=== PATIENT | male | born 1990 | race Caucasian/White ===

== ENCOUNTER 2018-12-08 22:16 | Emergency (ER) | payer MEDICAID ==
[~2018-12-08] VITALS: Ht 172.7 cm; Wt 72.6 kg
[2018-12-08 22:46] LABS: BASOPHILS % (AUTO) 1.8 % (0.0-2.0); EOSINOPHILS % (AUTO) 0.7 % (0.0-3.0); HEMATOCRIT 47.1 % (42.0-52.0); HEMOGLOBIN 16.3 G/DL (14.2-18.0); MEAN CORPUSCULAR VOLUME 88 FL (80-99); NEUTROPHILS % (AUTO) 74.6 % (45.0-75.0); PLATELET COUNT 298 K/UL (150-450); RED BLOOD COUNT 5.34 M/UL (4.70-6.10); RED CELL DISTRIBUTION WIDTH 10.8 % (11.6-14.8); WHITE BLOOD COUNT 9.2 K/UL (4.8-10.8)
[2018-12-08 23:05] LABS: ANION GAP 12 mmol/L (5-15); BLOOD UREA NITROGEN 19 mg/dL (7-18); CALCIUM 8.5 MG/DL (8.5-10.1); CARBON DIOXIDE 23 MMOL/L (21-32); CHLORIDE 109 MMOL/L (98-107); CREATININE 1.2 MG/DL (0.55-1.30); POTASSIUM 3.4 MMOL/L (3.5-5.1); SODIUM 144 MMOL/L (136-145)
[2018-12-08 23:09] LABS: ALANINE AMINOTRANSFERASE 47 U/L (12-78); ALBUMIN 3.4 G/DL (3.4-5.0); ALBUMIN/GLOBULIN RATIO 1.3 (1.0-2.7); ALKALINE PHOSPHATASE 88 U/L (46-116); ASPARTATE AMINO TRANSFERASE 32 U/L (15-37); BILIRUBIN,TOTAL 0.3 MG/DL (0.2-1.0)
--- NOTE | 2018-12-08 23:36 | NUR ---
ED Nurse Note: Patient brought in by ambulance, appears to have ETOH intoxication. Patient has sporadic emesis episodes. Will continue to monitor.
[2018-12-08 23:37] VITALS: BP 135/90
--- NOTE | 2018-12-09 00:06 | NUR ---
ED Nurse Note: Patient tolerated medication administration well. Patient unable to physically accomodate completion of CT. IV N/S fluid running, Will continue to monitor.
--- NOTE | 2018-12-09 00:25 | NUR ---
ED Nurse Note: Patient able to verbalize experience. He was informed of plan and is now attempting to go back to sleep. Will continue to monitor.
--- NOTE | 2018-12-09 01:25 | NUR ---
ED Nurse Note: PAtient is sleeping soundly, has no s/s of acute distress. Will continue to monitor.
--- NOTE | 2018-12-09 02:26 | NUR ---
ED Nurse Note: Patient still sleepings, even a symmetrical breathing, no s/s of acute distress. Will continue to monitor.
--- NOTE | 2018-12-09 02:27 | Emergency Room Report ---
History of Present Illness General Chief Complaint: Alcohol Intoxication Source: Patient, EMS Present Illness HPI 28-year-old male presents ED for evaluation. Brought in by EMS from Street. Found with alcohol bottles next to him. Bystanders called 911. Patient admitted to alcohol use to EMS. Patient not providing any additional history at this time. Denies chest pain or shortness of breath. Patient is vomiting. Denies abdominal pain. Denies drug use. No other aggravating relieving factors. Denies any other associated symptoms Allergies: Coded Allergies: UNABLE TO ASSESS (Unverified , 12/08/18) Patient History Past Medical History: none Past Surgical History: none Pertinent Family History: none Social History: Reports: alcohol use; Denies: smoking, drug use Immunizations: UTD Reviewed Nursing Documentation: PMH: Agreed; PSxH: Agreed Nursing Documentation-PMH Past Medical History Deferred: Pt Cognitively Impaired Past Medical History: Deferred Review of Systems All Other Systems: limited Physical Exam Vital Signs Date Time Temp Pulse Resp B/P (MAP) Pulse Ox O2 Delivery O2 Flow Rate FiO2 12/08/18 22:12 98.2 86 18 135/90 (105) 98 Room Air Sp02 EP Interpretation: reviewed, normal General Appearance: other - intoxicated Head: normocephalic Eyes: bilateral eye normal inspection, bilateral eye PERRL ENT: normal ENT inspection Neck: normal inspection Respiratory: normal inspection Cardiovascular #1: normal inspection Gastrointestinal: normal inspection Rectal: deferred Genitourinary: no CVA tenderness Musculoskeletal: normal inspection Neurologic: other - intoxicated Psychiatric: other - intoxicated Skin: no rash Lymphatic: normal inspection Medical Decision Making Diagnostic Impression: Primary Impression: Acute alcoholic intoxication Qualified Codes: F10.929 - Alcohol use, unspecified with intoxication, unspecified ER Course Hospital Course 28-year-old M presents to ED with altered mental status. +ETOH Differential diagnoses include: Psychosis, EtOH, drug abuse Clinical course patient placed on stretcher. On monitor tech. After initial history and physical ordered labs, IV fluids, pepcid, zofran Labs reviewed-electrolytes okay, no leukocytosis, hemoglobin/hematocrit stable, ETOH > 200 Patient given IV fluids. Given Pepcid and Zofran. Observed with stable vitals in ED. Patient awake alert oriented times 3 in the morning. discussed findings with patient. Will discharge to home Safe for discharge with close outpatient follow-up. Will provide referrals i. I feel this is a highly complex case requiring extensive working including EKG/Rhythm strip, Xray/CT/US, Blood/urine lab work, repeat exams while in ED, and administration of strong opiates/narcotics for pain control, admission to hospital or close patient follow up. Diagnosis -alcohol intoxication Stable and discharged to home. Followup with PMD. Return to ED if symptoms recur or worsen Labs Test 12/08/18 22:25 White Blood Count 9.2 K/UL (4.8-10.8) Red Blood Count 5.34 M/UL (4.70-6.10) Hemoglobin 16.3 G/DL (14.2-18.0) Hematocrit 47.1 % (42.0-52.0) Mean Corpuscular Volume 88 FL (80-99) Mean Corpuscular Hemoglobin 30.5 PG (27.0-31.0) Mean Corpuscular Hemoglobin Concent 34.6 G/DL (32.0-36.0) Red Cell Distribution Width 10.8 % (11.6-14.8) Platelet Count 298 K/UL (150-450) Mean Platelet Volume 6.8 FL (6.5-10.1) Neutrophils (%) (Auto) 74.6 % (45.0-75.0) Lymphocytes (%) (Auto) 13.0 % (20.0-45.0) Monocytes (%) (Auto) 10.0 % (1.0-10.0) Eosinophils (%) (Auto) 0.7 % (0.0-3.0) Basophils (%) (Auto) 1.8 % (0.0-2.0) Sodium Level 144 MMOL/L (136-145) Potassium Level 3.4 MMOL/L (3.5-5.1) Chloride Level 109 MMOL/L (98-107) Carbon Dioxide Level 23 MMOL/L (21-32) Anion Gap 12 mmol/L (5-15) Blood Urea Nitrogen 19 mg/dL (7-18) Creatinine 1.2 MG/DL (0.55-1.30) Estimat Glomerular Filtration Rate > 60 mL/min (>60) Glucose Level 108 MG/DL (74-106) Calcium Level 8.5 MG/DL (8.5-10.1) Total Bilirubin 0.3 MG/DL (0.2-1.0) Aspartate Amino Transf (AST/SGOT) 32 U/L (15-37) Alanine Aminotransferase (ALT/SGPT) 47 U/L (12-78) Alkaline Phosphatase 88 U/L (46-116) Total Protein 6.1 G/DL (6.4-8.2) Albumin 3.4 G/DL (3.4-5.0) Globulin 2.7 g/dL Albumin/Globulin Ratio 1.3 (1.0-2.7) Salicylates Level 0.3 ug/mL (2.8-20) Acetaminophen Level < 2 MCG/ML (10-30) Serum Alcohol 281 mg/dL Last Vital Signs Date Time Temp Pulse Resp B/P (MAP) Pulse Ox O2 Delivery O2 Flow Rate FiO2 12/08/18 23:37 98.2 86 18 135/90 98 Room Air Status: improved Disposition: HOME, SELF-CARE Condition: Stable Referrals: NOT CHOSEN IPA/,REFERRING (PCP) Kemar Rios MD Dec 09, 2018 02:27
--- NOTE | 2018-12-09 03:42 | NUR ---
ED Nurse Note: Patient sleeping soundly, will continue to monitor.
--- NOTE | 2018-12-09 05:12 | NUR ---
ED Nurse Note: Patient is awake, alert, able to ambulate. Patient reports no pain at this time. Patient request IV restart since EMT IV was discontinued in patient's sleep. IV started at left AC 20G.
--- NOTE | 2018-12-09 05:23 | NUR ---
ED Nurse Note: Patient now has complaints of head and back pain. Will consult ERMD>
[2018-12-09] MEDS ORDERED: Ketorolac 30mg Inj IV ONE (05:30)
[2018-12-09 05:34] VITALS: BP 116/79
--- NOTE | 2018-12-09 05:36 | NUR ---
ED Nurse Note: Medication for pain administered and tolerated well. Patient states that he feels nauseas and would like medication. Will consult ERMD. Vital signs within normal range and documented.
[2018-12-09 06:18] VITALS: BP 116/79
--- NOTE | 2018-12-09 06:18 | NUR ---
ED Nurse Note: Patient cleared for discharge, is currently cleaning up in the restroom. Patient provided with a clean shirt and clean pants due to soiling his original clothes. Patient is A&Ox4, ambulatory with steady gait and has no s/s of acute distress. ERMD consulted regarding lesion at left forehead, no impending orders received. Patient IV removed, Id band removed. Patient departed to home via Uber.
== END 2018-12-09 06:19 | disposition home or self-care (01) ==
LOC: EDBD 22:16 → EMR 22:35
DX: F10.929 Alcohol use, unspecified with intoxication, unspecified (principal); Y90.8 Blood alcohol level of 240 mg/100 ml or more
CPT/HCPCS: 36415; 80053; 85025; 96361; 96374; 96375; 96376; G0480; G0481; J1885; J2405; S0028; Z7502; 99284; J7030